=== PATIENT | male | born 1960 | race Caucasian/White ===

== ENCOUNTER 2017-04-17 15:47 | Emergency (ER) | payer OTHER ==
[~2017-04-17] VITALS: Ht 180.3 cm; Wt 161.0 kg
[~2017-04-17 15:47] MED LIST: ASPIRIN EC325 M1 OR; ASPIRIN EC81 M1 PO; CARVEDILOL12.5 MG PO; COLACE100 MG PO; ENDOCET 10-3251 EACH PO; HYDROCODON-ACE1 EAC8 OR; ISOSORBIDE DINI30 MG PO; LISINOPRIL10 MG PO; METHOCARBAMOL750 MG PO; NORCO 5-325 TA1 EACH PO; NORCO 7.5-3251 EACH PO; OXYCODON-ACETA1 EAC1 PO; OXYCODONE HCL-1 EAC1 PO; OXYCONTIN20 M1 PO; PLAVIX 75 MG TA75 MG PO; RANEXA1000 MG PO; TOPROL XL25 MG OR; TOPROL XL25 MG PO; XANAX 0.5 MG0.5 M1 OR; XANAX 0.5 MG0.5 M1 PO
[2017-04-17] MEDS ORDERED: PERCOCET 5-3251 EACH PO (16:07)
[2017-04-17] MEDS ORDERED: ISOSORBIDE MONO60 M1 PO (16:22)
[2017-04-17] MEDS ORDERED: ATORVASTATIN CA40 MG PO (16:22)
[2017-04-17] MEDS ORDERED: COZAAR 25 MG TA25 M1 PO (16:23)
[2017-04-17] MEDS ORDERED: PROTONIX40 M1 PO (16:23)
[2017-04-17] MEDS ORDERED: NITROSTAT0.4 M1 SL (16:23)
[2017-04-17] MEDS ORDERED: PERCOCET 10-321 EACH PO (16:24)
[2017-04-17] MEDS ORDERED: PHENERGAN 25 MG25 M1 PO (16:24)
[2017-04-17] MEDS ORDERED: TRAZODONE HCL100 MG PO (16:25)
[2017-04-17] MEDS ORDERED: ALDACTONE25 MG PO (16:25)
[2017-04-17] MEDS ORDERED: COUMADIN 5 MG TA5 M1 PO ×2 (16:26→16:27)
[2017-04-17 18:13] VITALS: BP 122/78
== END 2017-04-17 18:14 | disposition home or self-care (01) ==
LOC: ER 15:47
DX: G89.29 Other chronic pain (principal); M25.561 Pain in right knee; I10 Essential (primary) hypertension; I25.2 Old myocardial infarction; Z95.5 Presence of coronary angioplasty implant and graft; Z88.0 Allergy status to penicillin; Z88.5 Allergy status to narcotic agent; Z87.891 Personal history of nicotine dependence

== ENCOUNTER 2017-04-17 19:56 | Emergency (ER) | payer OTHER ==
[~2017-04-17] VITALS: Ht 180.3 cm; Wt 158.8 kg
[~2017-04-17 19:56] MED LIST changes: +ALDACTONE25 MG PO; +ATORVASTATIN CA40 MG PO; +COUMADIN 5 MG TA5 M1 PO; +COZAAR 25 MG TA25 M1 PO; +ISOSORBIDE MONO60 M1 PO; +NITROSTAT0.4 M1 SL; +PERCOCET 10-321 EACH PO; +PERCOCET 5-3251 EACH PO; +PHENERGAN 25 MG25 M1 PO; +PROTONIX40 M1 PO; +TRAZODONE HCL100 MG PO
[2017-04-17 20:38] LABS: CALCIUM 8.8 mg/dL (8.5-10.1); CREATININE 0.9 mg/dL (0.7-1.3); POTASSIUM 3.9 mmol/L (3.5-5.1)
[2017-04-17 20:47] LABS: ABSOLUTE NEUTROPHILS 3.4 thou/uL (1.4-8.2); BASOPHILS 0.5 % (0.0-2.0); EOSINOPHILS 5.6 % (0.0-3.0); HEMATOCRIT 32.1 % (42.0-52.0); HEMOGLOBIN 10.5 gm/dL (14.0-18.0); LYMPHOCYTES 28.7 % (24.0-44.0); MCH 29.6 pg (26.0-34.0); MCHC 32.6 g/dL (28.0-37.0); MCV 90.9 fL (80.0-100.0); MONOCYTES 9.4 % (1.0-8.0); POLYS 55.8 % (36.0-66.0); RBC 3.53 mil/uL (4.50-6.00); RDW 16.6 % (10.5-14.5); WBC 6.6 thou/uL (4.0-11.0)
[2017-04-17 20:49] LABS: MANUAL DIFF NO
[2017-04-17 21:22] LABS: PLATELET COUNT 40 thou/uL (150-400)
[2017-04-17 22:38] VITALS: BP 159/62
== END 2017-04-17 22:39 | disposition home or self-care (01) ==
LOC: ER 19:56
PROVIDERS: Physician Assistant
DX: T84.53XA Infection and inflammatory reaction due to internal right knee prosthesis, initial encounter (principal); I10 Essential (primary) hypertension; I25.2 Old myocardial infarction; Z95.5 Presence of coronary angioplasty implant and graft; Z72.89 Other problems related to lifestyle; Z88.5 Allergy status to narcotic agent; Z88.0 Allergy status to penicillin; Z87.891 Personal history of nicotine dependence; X50.1XXA Overexertion from prolonged static or awkward postures, initial encounter; Y93.89 Activity, other specified; Y92.89 Other specified places as the place of occurrence of the external cause; Y99.8 Other external cause status